=== PATIENT | male | born 2000 | race Hispanic/Latino ===

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

== ENCOUNTER 2023-10-03 21:19 | Emergency (ER) | payer BC | END 2023-10-03 22:58 | disposition home or self-care (01) | LOC: ERS 21:19 | DX: J06.9 Acute upper respiratory infection, unspecified (principal); I10 Essential (primary) hypertension; Z79.899 Other long term (current) drug therapy | CPT/HCPCS: 99283 ==